=== PATIENT | male | born 1955 | race Caucasian/White ===

== ENCOUNTER 2022-04-27 00:34 | Emergency (ER) | payer OTHER ==
[~2022-04-27] VITALS: Ht 182.9 cm; Wt 108.9 kg
[2022-04-27 00:38] VITALS: BP_SYST 181; BP_SYST 200; BP_DIAS 106
--- NOTE | 2022-04-27 00:48 | NUR ---
PT TO BED #8
[2022-04-27] MEDS ORDERED: ASPIRIN 325 MG TAB PO ONE (00:50)
[2022-04-27] MEDS ORDERED: NITROGLYCERIN 0.4 MG TAB SL ONE (00:50)
--- NOTE | 2022-04-27 00:54 | NUR ---
RAD AT BEDSIDE
--- NOTE | 2022-04-27 00:55 | NUR ---
Patient being evaluated by physician at bedside.
--- NOTE | 2022-04-27 01:05 | NUR ---
TIMED CHANGED IN THE MIDDLE OF CHARTING VS. TO GO IN LINE WITH PRIOR CHARTING WILL CHART THIS AT 0145 AND CONTINUE NEEDED. 119/69 HR 95
[2022-04-27 01:08] LABS: ALBUMIN 3.9 g/dL (3.4-5.0); ASPARTATE AMINOTRANSFERASE 25 U/L (15-37); CARBON DIOXIDE 26.7 mmol/L (21-32); CREATININE 1.4 mg/dL (0.6-1.3); GFR ARICAN-AMERICAN 65 mL/min (>90); GLUCOSE 209 mg/dL (74-106); LIPASE 122 U/L (73-393); TOTAL BILIRUBIN 0.3 mg/dL (0.0-1.0); UREA NITROGEN, BLOOD 17 mg/dL (7-18)
[2022-04-27 01:09] LABS: ANION GAP 14.9 (8-16); CHLORIDE 101 mmol/L (98-107); POTASSIUM 3.6 mmol/L (3.5-5.1); SODIUM SERUM 139 mmol/L (136-145)
--- NOTE | 2022-04-27 01:20 | NUR ---
PT MEDICATED PER ORDERS GIVEN.
[2022-04-27 01:21] LABS: BASOPHILS # (AUTO) 0.1 K/uL (0.00-0.22); BASOPHILS % (AUTO) 0.8 % (0.0-2.0); EOSINOPHILS # (AUTO) 0.2 K/uL (0-0.4); EOSINOPHILS % (AUTO) 2.3 % (0.0-4.0); HEMATOCRIT 42.5 % (36-52); HEMOGLOBIN 14.5 g/dL (12.0-18.0); LYMPHOCYTES # (AUTO) 2.4 K/uL (2.0-11.5); LYMPHOCYTES % (AUTO) 22.8 % (20.5-51.1); MEAN CORPUSCULAR HEMOGLOBIN 29 pg (27-31); MEAN CORPUSCULAR HGB CONC 34 g/dL (33-37); MEAN CORPUSCULAR VOLUME 84.9 fL (80-94); MONOCYTES # (AUTO) 0.9 K/uL (0.8-1.0); MONOCYTES % (AUTO) 8.3 % (1.7-9.3); NEUTROPHILS # (AUTO) 6.8 K/uL (1.8-7.7); NEUTROPHILS % (AUTO) 65.8 % (42.2-75.2); PLATELET COUNT (AUTO) 285 K/uL (140-450); RED BLOOD CELL COUNT(AUTO) 5.01 MIL/uL (4.20-6.10); WHITE BLOOD COUNT (AUTO) 10.4 K/uL (4.8-10.8)
--- NOTE | 2022-04-27 01:25 | NUR ---
PT GIVEN SECOND NITRO, DR. BOWERS AWARE OF B/P 133/79 AND IMPROVEMENT IN PAIN OF 210. PER DR. BOWERS NO MORE NITRO AT THIS TIME.
--- NOTE | 2022-04-27 02:22 | NUR ---
DR. BOWERS AT BEDSIDE TO DISCUSS RESULTS AND POC
[2022-04-27 02:48] VITALS: BP 133/79
--- NOTE | 2022-04-27 02:48 | NUR ---
Patient does not wish to proceed with medical care recommended by DR. BOWERS. Patient given information related to possible complications, up to and including , which could occur as a result of leaving hospital at this time. Patient verbalizes understanding of risks involved leaving against medical advice. Patient has signed AMA form.
== END 2022-04-27 02:48 | disposition left against medical advice (07) ==
LOC: MED 00:34
DX: R07.9 Chest pain, unspecified (principal); I10 Essential (primary) hypertension; Z98.890 Other specified postprocedural states
CPT/HCPCS: 36415; 71045; 80053; 83690; 84484; 85025; 93005; 99285